=== PATIENT | female | born 1970 ===

== ENCOUNTER 2018-10-02 10:10 | Emergency (ER) | payer MEDICAID, SELFPAY ==
[2018-10-02 10:17] VITALS: BP 125/73; PULSE 67; RESP 14; TEMP 36.8; O2SAT 98
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
--- NOTE | 2018-10-02 10:43 | DI.CT_ITS ---
SYMPTOMS/DIAGNOSIS: RIGHT OTITIS EXTERNA, DIFFICULTY SWALLOWING CT SCAN OF THE NECK: CT scan of the neck was performed following the uneventful administration of intravenous contrast material. There are no priors for comparison. The visualized intracranial structures are unremarkable. The visualized orbits and retroorbital soft tissues are unremarkable. The visualized paranasal sinuses and mastoid air cells are well pneumatized. The oropharynx, nasopharynx, hypopharynx and larynx are unremarkable. The retropharyngeal soft tissues are unremarkable. The parotid and submandibular glands are unremarkable, as is the thyroid gland. Reactive lymph nodes are seen in the neck, the largest has a short axis diameter of 1 cm. No focal fluid collections are seen in the soft tissues. There is soft tissues swelling seen involving the external auditory canal and auricle. There is some soft tissue seen in the external auditory canal, which may be cerumen. The middle ear ossicles are unremarkable. The bones are intact. The lung apices are clear. IMPRESSION: Findings suggestive of otitis externa. No abscess. No evidence of involvement of the middle ear or middle ear ossicles. The findings were discussed with Jayna Juarez of the Emergency Department on the date of the examination.
[2018-10-02] MEDS: Cortisporin OTIC SUSP 10 ML BTL AD (11:46)
[2018-10-02 11:51] LABS: Abs Immature Grans 0.01 k/cumm (0.0-0.09); Absolute Basophil Count 0.05 k/cumm (0.0-0.2); Absolute Eosinophil Count 0.12 k/cumm (0.0-0.7); Absolute Lymphocyte Count 2.02 k/cumm (1.2-3.4); Absolute Monocyte Count 0.86 k/cumm (0.11-0.7); Absolute Neutrophil Count 6.03 k/cumm (1.2-6.7); Basophils % 0.6; Eosinophils % 1.3; HCT 36.3 % (36.0-46.0); Immature Grans % 0.1; Lymphocytes % 22.2; Mean Corp. HGB Concentration 33.1 g/dL (32.0-36.0); Mean Corpuscular Hemoglobin 31.1 pg (27.0-33.0); Mean Platelet Volume 10.2 fL (8.0-11.0); Monocytes % 9.5; Neutrophils % 66.3; Platelet Count 327 x1000/uL (130-400); RBC 3.86 m/cumm (4.00-5.20); RBC Distribution Width 12.5 % (11.7-14.6); White Blood Cell Count 9.09 k/cumm (4.4-10.8)
[2018-10-02 11:59] LABS: ALT 20 U/L (12-78); AST 18 U/L (15-37); Albumin 3.6 g/dL (3.4-5.0); Alkaline Phosphatase 64 U/L (46-116); Anion Gap 10.8 mmol/L (3-11); BUN 12 mg/dL (7-18); Bilirubin, Total 0.4 mg/dL (0.2-1.0); CO2 25.2 mmol/L (21.0-32.0); Calcium 8.8 mg/dL (8.5-10.1); Chloride 106 mmol/L (98-107); Glucose 87 mg/dL (70-100); Potassium 3.5 mmol/L (3.5-5.1); Sodium 142 mmol/L (136-145); Total Protein 7.4 g/dL (6.4-8.2)
[2018-10-02] MEDS: Omnipaque 350 MG/ML 100 ML BTL IJ (12:37)
[2018-10-02 13:06] VITALS: BP 97/56; PULSE 66; RESP 16; TEMP 36.8; O2SAT 100
== END 2018-10-02 13:12 | disposition home or self-care (01) ==
PROVIDERS: Emergency Provider Physician Assistant; PCP Family Medicine
DX: H60.501 Unspecified acute noninfective otitis externa, right ear (principal); J02.9 Acute pharyngitis, unspecified
CPT/HCPCS: 70491; 80053; 99284; 85025; J3490